=== PATIENT | male | born 1950 | race African-American/Black ===

== ENCOUNTER 2023-12-15 07:09 | Day surgery (SDC) | payer OTHER ==
[2023-12-14 09:50] VITALS: BMI 27.6
[2023-12-15] MEDS ORDERED: PROPOFOL 40 ML ONE (09:25)
[2023-12-15] MEDS ORDERED: PROPOFOL 20 ML ONE (10:35)
== END 2023-12-15 10:45 | disposition home or self-care (01) ==
LOC: CSHSDC 07:09
PROVIDERS: ATTEND Internal Medicine Gastroenterology
PROC: 0DBM8ZZ Excision of Descending Colon, Via Natural or Artificial Opening Endoscopic (ICD-10-PCS; principal; 2023-12-15)
PROC: 0DBK8ZZ Excision of Ascending Colon, Via Natural or Artificial Opening Endoscopic (ICD-10-PCS; principal; 2023-12-15)
DX: Z12.11 Encounter for screening for malignant neoplasm of colon (principal); D12.2 Benign neoplasm of ascending colon; D12.4 Benign neoplasm of descending colon; K57.30 Diverticulosis of large intestine without perforation or abscess without bleeding; K64.9 Unspecified hemorrhoids; I10 Essential (primary) hypertension; Z86.010 Personal history of colon polyps
CPT/HCPCS: 88305; J2704